=== PATIENT | male | born 1965 | race Caucasian/White ===

== ENCOUNTER 2022-08-19 08:27 | Outpatient (CLI) | payer BC ==
[2022-08-19] MEDS ORDERED: Iopamidol 300 61% 100 ML VIAL FS ONE (13:38)
== END 2022-08-19 08:28 | disposition home or self-care (01) ==
LOC: CSHCT 08:27
PROVIDERS: ATTEND Internal Medicine Hematology & Oncology
DX: C18.1 Malignant neoplasm of appendix (principal); C18.9 Malignant neoplasm of colon, unspecified
CPT/HCPCS: 71260; 74177; Q9967

== ENCOUNTER 2023-03-10 08:08 | Outpatient (CLI) | payer BC ==
[2023-03-10] MEDS ORDERED: Iopamidol 300 61% 100 ML VIAL FS ONE (09:59)
== END 2023-03-10 08:09 | disposition home or self-care (01) ==
LOC: CSHCT 08:08
PROVIDERS: ATTEND Internal Medicine Hematology & Oncology
DX: C18.9 Malignant neoplasm of colon, unspecified (principal)
CPT/HCPCS: 71260; 74177; Q9967

== ENCOUNTER 2023-08-25 08:33 | Outpatient (CLI) | payer BC ==
[2023-08-25] MEDS ORDERED: Iopamidol 300 61% 100 ML VIAL FS ONE (13:50)
== END 2023-08-25 08:34 | disposition home or self-care (01) ==
LOC: CSHCT 08:33
PROVIDERS: ATTEND Internal Medicine Hematology & Oncology
DX: C18.9 Malignant neoplasm of colon, unspecified (principal)
CPT/HCPCS: 71260; 74177; Q9967

== ENCOUNTER 2024-02-09 08:04 | Outpatient (CLI) | payer BC ==
[2024-02-09] MEDS ORDERED: Iopamidol 300 61% 100 ML VIAL FS ONE (13:09)
== END 2024-02-09 08:05 | disposition home or self-care (01) ==
LOC: CSHCT 08:04
PROVIDERS: ATTEND Internal Medicine
DX: C18.1 Malignant neoplasm of appendix (principal); C18.9 Malignant neoplasm of colon, unspecified
CPT/HCPCS: 71260; 74177; Q9967

== ENCOUNTER 2024-07-12 08:20 | Outpatient (CLI) | payer BC ==
[2024-07-12] MEDS ORDERED: Iopamidol 300 61% 100 ML VIAL FS ONE (12:19)
== END 2024-07-12 08:21 | disposition home or self-care (01) ==
LOC: CSHCT 08:20
PROVIDERS: ATTEND Internal Medicine Hematology & Oncology
DX: C18.9 Malignant neoplasm of colon, unspecified (principal)
CPT/HCPCS: 36415; 71260; 74177; 82565; Q9967